=== PATIENT | female | born 1995 | race Caucasian/White ===

== ENCOUNTER 2016-03-27 00:55 | Inpatient (IN) | payer OTHER ==
[2016-03-27] VITALS (10 sets, daily range): BP systolic 116–137; BP diastolic 60–84
[~2016-03-27] VITALS: Ht 154.9 cm; Wt 70.0 kg
[2016-03-27] MEDS ORDERED: LR 1,000 ML IV SCH (02:32)
[2016-03-27 03:17] LABS: MEAN CORPUSCULAR HEMOGLOBIN 30.5 pg (27.0-33.0); MEAN CORPUSCULAR HGB CONC 33.6 g/dl (32.0-36.5); MEAN CORPUSCULAR VOLUME 90.6 fl (80.0-96.0); RED CELL DISTRIBUTION WIDTH 13.1 % (11.5-14.5); WHITE BLOOD COUNT 13.4 K/mm3 (4.0-10.0)
[2016-03-27] MEDS ORDERED: FENTANYL 2MCG/ML ROPIVACAINE 0.2% NACL 250 ML CADD As Ordered ONE (03:23)
--- NOTE | 2016-03-27 03:37 | HPE ---
DATE OF ADMISSION: 03/27/2016 REASON FOR ADMISSION: Spontaneous rupture of membranes. HISTORY OF PRESENT ILLNESS: This patient is a 20-year-old 1, who presents at 39 weeks 5 days estimated gestational age by her last menstrual period confirmed by a first trimester ultrasound with complaints of contractions and leakage of fluid. She reports that she had leakage of fluid that occurred yesterday morning at 5 a.m., have continued throughout the day. She reports irregular contractions that have increased in intensity and frequency. That activity became less than 5 minutes apart at which point she decided to present to labor and delivery. She denied any vaginal bleeding. Reports active movement. Her course has been remarkable for tobacco use. She initiated care in the first trimester, has been appropriate throughout. PAST MEDICAL HISTORY/PAST SURGICAL HISTORY: She has had a cholecystectomy. MEDICATIONS: vitamins. ALLERGIES: She has no known drug allergies. OBSTETRICAL HISTORY: She is a 1. SOCIAL HISTORY: She reports 1/2 pack a day smoking and reports smoking throughout the . PHYSICAL EXAMINATION: VITAL SIGNS: Stable. She is afebrile. She has a category 1 heart rate tracing with a regular pattern of contractions on tachometer. GENERAL APPEARANCE: There is no acute distress. LUNGS: Clear to auscultation bilaterally. CARDIOVASCULAR: Heart is regular rate and rhythm. ABDOMEN: Soft, gravid, and nontender. Estimated weight (EFW) 3400 grams. CERVICAL EXAM: She was 5 cm dilated, completely effaced, 0 station. LABORATORIES: Her blood type is AB positive. Antibody screen is negative. Rubella is immune. RPR is nonreactive. Hepatitis surface antigen is negative. HIV is negative. Hepatitis C is nonreactive. Chlamydia and gonorrhea screens are negative. She had a normal 1-hour Glucola. She is group B Streptococcus (GBS) negative. ASSESSMENT: 1. Ms. Iglesias is a 20-year-old 1 at 39 weeks 5 days estimated gestational age with spontaneous rupture of membranes. 2. Reassuring status. 3. Approaching prolonged rupture of membranes at 22 hours. PLAN: 1. Admit to labor and delivery. CBC, RPR, type and screen. 2. Patient is a good candidate for an epidural. 3. Anticipate spontaneous vaginal delivery.
[2016-03-27] MEDS ORDERED: OXYTOCIN 30 UNITS IN 0.9% NaCl 500ML IV BAG (J2590) As Ordered ONE (03:50)
[2016-03-27] MEDS ORDERED: OXYTOCIN DRIP 30 UNITS in APPROPRIATE DILUENT 1 EA IV SCH (07:43)
[2016-03-27 07:44] LABS: CORD GAS HCO3 V 19.8 MEQ/L; CORD GAS O2 SAT V 56.9 %; CORD GAS PCO2 V 52.1 mmHg; CORD GAS PH V 7.197 UNITS; CORD GAS PO2 V 25.2 mmHg; CORD GAS SBC V 16.5 MEQ/L; CORD GAS TCO2 V 21.4 MEQ/L
[2016-03-27] MEDS ORDERED: IBUPROFEN 800 MG TAB PO PRN (07:45)
[2016-03-27] MEDS ORDERED: RHOGAM 300 MCG (1500 IU) INJ (J2790) IM SCH (07:45)
[2016-03-27] MEDS ORDERED: ONDANSETRON 4MG/2ML VIAL (J2405) IV PRN (07:45)
[2016-03-27] MEDS ORDERED: METHYLERGONOVINE MALEATE 0.2 MG TAB PO PRN (07:45)
[2016-03-27] MEDS ORDERED: MOM 30ML SUSPENSION UDC PO PRN (07:45)
[2016-03-27] MEDS ORDERED: DOCUSATE SODIUM 100 MG CAP PO PRN (07:45)
[2016-03-27] MEDS ORDERED: diphenhydrAMINE INJ 50MG/ML VIAL (J1200) IV PRN (07:45)
[2016-03-27] MEDS ORDERED: LACTATED RINGER'S 1000 ML IV PRN (07:45)
[2016-03-27] MEDS ORDERED: ePHEDrine SULFATE 25 MG/5 ML(5MG/ML) SYRINGE IV PRN (07:45)
[2016-03-27] MEDS ORDERED: MEASLES,MUMPS,RUBELLA VACCINE INJ (MMR-II) (90707) SC SCH (07:45)
[2016-03-27] MEDS ORDERED: EPIDURAL COMMENT XX SCH (07:45)
[2016-03-27] MEDS ORDERED: NALOXONE INJ 0.4 MG/1 ML VIAL (J2310) IV PRN (07:45)
[2016-03-27] MEDS ORDERED: FENTANYL/ROPIVACAINE/NACL CADD 250 ML EPIDURAL SCH (07:45)
[2016-03-27] MEDS ORDERED: DIBUCAINE 1% OINTMENT 30GM TOP PRN (07:45)
[2016-03-27] MEDS ORDERED: REFRIGERATOR IV KEYS XX PRN (07:45)
[2016-03-27] MEDS ORDERED: EPIDURAL/PCA KEYS XX PRN (07:45)
[2016-03-27] MEDS ORDERED: ACETAMINOPHEN 500 MG TAB PO PRN (07:45)
[2016-03-27 07:46] LABS: CORD GAS ABE A -10.4; CORD GAS HCO3 A 21.4 MEQ/L; CORD GAS O2 SAT A 30.1 %; CORD GAS PCO2 A 71.9 mmHg; CORD GAS PH A 7.092 UNITS; CORD GAS PO2 A 17.2 mmHg; CORD GAS SBC A 14.9 MEQ/L; CORD GAS TCO2 A 23.6 MEQ/L
--- NOTE | 2016-03-27 07:55 | DN ---
DATE OF DELIVERY: 03/27/2016 TIME OF : 0711 hours. GENDER: Male. SCORE: 7 and 9. WEIGHT: 3232 grams or 7 pounds 2 ounces. LACERATIONS: Bilateral periurethral lacerations. ESTIMATED BLOOD LOSS: Was 300 mL. ANESTHESIA: Epidural. COUNTS: 5 laparotomy sponges accounted for prior to and after delivery. DELIVERY NOTE: On 03/27/2016, at 0711 hours, Ms. Iglesias , a 20-year-old, 1, now para 1, had a spontaneous vaginal delivery of a liveborn male , score 7 and 9, weight 7 pounds 2 ounces or 3232 grams. Head was delivered left occiput anterior (JESS) over intact peritoneum. There was a loose nuchal cord, which was manually reduced, followed by delivery of right anterior shoulder, left posterior shoulder and corpus. was handed to mom with a good cry. Cord was clamped times two. It was cut by the father of the baby under my direction. Cord blood and cord gases were then obtained. Placenta was then drained, delivered grossly intact. A premixed bag of 500 mL of normal saline with 30 units of Pitocin was then bolused along with uterine massage until the uterus was firm. On inspection, bilateral periurethral lacerations, which were repaired with #3-0 Vicryl Rapide. On re-inspection, the cervix, vagina and perineum was grossly intact and hemostatic. Mom and baby recovered in stable condition. The couple have decided to name their son, Matt.
[2016-03-27] MEDS ORDERED: PRENTAB9 PO (08:47)
[2016-03-27] MEDS: PRENATAL VITAMIN TAB PO SCH (09:00)
[2016-03-28 05:48] VITALS: BP 116/72
[2016-03-28] MEDS: PRENATAL VITAMIN TAB PO SCH (09:00)
[2016-03-28 18:03] VITALS: BP 111/63
[2016-03-29 05:52] VITALS: BP 136/73
[2016-03-29] MEDS: PRENATAL VITAMIN TAB PO SCH (08:35)
[2016-03-29] MEDS ORDERED: ADACEL/BOOSTRIX VACCINE (DIPHTH/PERTUSS/ACELL/TETANUS)0.5ML SYR (90715) IM ONE (09:00)
[2016-03-29] MEDS ORDERED: ACET50TA PO (09:05)
[2016-03-29] MEDS ORDERED: MOTR200T40 PO (09:05)
== END 2016-03-29 09:45 | disposition home or self-care (01) | DRG 560 ==
LOC: M LDO 00:55 → M LDI 02:00 → M OBS 10:07
PROVIDERS: ADMIT Obstetrics & Gynecology; ATTEND Obstetrics & Gynecology
PROC: 10E0XZZ Delivery of Products of Conception, External Approach (ICD-10-PCS; principal; 2016-03-27)
PROC: 0UQMXZZ Repair Vulva, External Approach (ICD-10-PCS; 2016-03-27)
DX: O71.82 Other specified trauma to perineum and vulva (principal); F17.210 Nicotine dependence, cigarettes, uncomplicated; O99.334 Smoking (tobacco) complicating childbirth; Z37.0 Single live birth; Z3A.39 39 weeks gestation of pregnancy; O69.82X0 Labor and delivery complicated by other cord entanglement, without compression, not applicable or unspecified; Z90.49 Acquired absence of other specified parts of digestive tract

== ENCOUNTER → 2017-05-07 | Outpatient (REF) | payer OTHER | LOC: M LAB REF 16:28 | DX: J02.9 Acute pharyngitis, unspecified (principal) ==

== ENCOUNTER → 2017-10-20 | Outpatient (REF) | payer OTHER | LOC: M LAB REF 16:56 | DX: R30.0 Dysuria (principal) | CPT/HCPCS: 87186 ==

== ENCOUNTER → 2017-12-03 | Outpatient (CLI) | payer OTHER ==
[2017-12-03 10:50] LABS: BASO % 0.4 % (0.0-1.0); EOS # 0.1 10^3/uL (0.0-0.50); EOS % 1.1 % (0.0-3.0); HEMATOCRIT 40.2 % (36.0-47.0); HEMOGLOBIN 13.5 g/dl (12.0-15.5); IMMATURE GRANULOCYTE % 0.3 % (0-3.0); LYMPH # 1.8 10^3/uL (1.5-6.5); LYMPH % 25.5 % (24.0-44.0); MEAN CORPUSCULAR HEMOGLOBIN 31.4 pg (27.0-33.0); MEAN CORPUSCULAR HGB CONC 33.6 g/dl (32.0-36.5); MEAN CORPUSCULAR VOLUME 93.5 fl (80.0-96.0); MONO # 0.8 10^3/uL (0.0-0.8); MONO % 10.9 % (0.0-5.0); NEUTROPHILS # 4.4 10^3/uL (1.8-7.7); NEUTROPHILS % 61.8 % (36.0-66.0); PLATELET COUNT, AUTOMATED 222 10^3/uL (150-450); RED CELL DISTRIBUTION WIDTH 12.6 % (11.5-14.5); WHITE BLOOD COUNT 7.1 10^3/uL (4.0-10.0)
[2017-12-03 12:00] LABS: HEPATITIS C VIRUS ABY INDEX 0.1 INDEX (<0.8)
[2017-12-03 12:00] LABS: HBsAg Prenatal NEGATIVE (NEGATIVE); RUBELLA IgG QUALITATIVE IMMUNE (IMMUNE)
[2017-12-03 13:05] LABS: CHLAMYDIA DNA AMPLIFICATION NEGATIVE (NEGATIVE)
[2017-12-04 07:09] LABS: GC DNA AMPLIFICATION NEGATIVE (NEGATIVE)
[2017-12-04 07:10] LABS: HIV 1&2 SCREEN CENTAUR NEGATIVE (NEGATIVE)
== END ==
LOC: M LAB 10:10
DX: Z34.81 Encounter for supervision of other normal pregnancy, first trimester (principal); Z3A.10 10 weeks gestation of pregnancy; Z36.89 Encounter for other specified antenatal screening
CPT/HCPCS: 86762

== ENCOUNTER → 2018-02-09 | Outpatient (CLI) | payer OTHER | LOC: M RAD 12:44 | DX: Z36.89 Encounter for other specified antenatal screening (principal); Z3A.20 20 weeks gestation of pregnancy | CPT/HCPCS: 76811 ==

== ENCOUNTER → 2018-05-28 | Outpatient (REF) | payer OTHER ==
[~2018-05-28] MED LIST: MAPA500T2 PO; MOTR200T44 PO; PRENTAB9 PO
== END ==
LOC: M LAB REF 17:20
PROVIDERS: ATTEND Advanced Practice Midwife
DX: O99.333 Smoking (tobacco) complicating pregnancy, third trimester (principal)

== ENCOUNTER → 2018-06-02 | Outpatient (CLI) | payer OTHER ==
--- NOTE | 2018-06-03 04:40 | REP ---
Clinical: Growth evaluation. Size discrepancy. Comparison: 02/09/2018 . Findings: Examination demonstrates a single live intrauterine in cephalic presentation. motion is identified by technologist. Placenta is noted anterior and grade grade II without evidence for placenta previa or abruption. Amniotic fluid volume is normal. Cervix appears closed. Nuchal cord cannot be excluded Gestational age by first US 38 weeks 1 day with ALEXEI 06/23/2018 . Gestational age by current measurements 38 weeks 3-day with ALEXEI 06/13/2018 . FHR equals 140 beats per minute. BPD 9.7 cm 39 weeks 3 day HC 33.8 cm 38 weeks 5 day AC 35.1 cm 39 weeks 0 days FL 7.2 cm 37 weeks 0 days HL 6.5 cm 37 weeks 5 days HC/AC ratio 0.96 Estimated weight 3544 grams ( 65th percentile based on age by first ultrasound ). Amniotic fluid index: 11.8 cm Umbilical cord SD ratio: 2.14 Impression: 1. Single live advanced gestation in cephalic presentation demonstrating appropriate interval growth. 2. Nuchal cord cannot be excluded. Electronically Signed by Serge Coburn MD 06/03/2018 04:31 A
== END ==
LOC: M RAD 11:55
PROVIDERS: ATTEND Advanced Practice Midwife
DX: O26.843 Uterine size-date discrepancy, third trimester (principal); Z3A.38 38 weeks gestation of pregnancy; O69.81X1 Labor and delivery complicated by cord around neck, without compression, fetus 1

== ENCOUNTER 2018-06-18 17:00 | Inpatient (IN) | payer OTHER ==
[~2018-06-18] VITALS: Ht 160 cm; Wt 67.0 kg
[2018-06-18] VITALS (7 sets, daily range): BP systolic 114–128; BP diastolic 61–90
[2018-06-18] MEDS ORDERED: OXYTOCIN 30 UNITS IN 0.9% NaCl 500ML IV BAG (J2590) As Ordered ONE (17:26)
[2018-06-18] MEDS ORDERED: LR 1,000 ML IV SCH (17:30)
[2018-06-18 18:10] LABS: CORD GAS ABE V -5.8; CORD GAS HCO3 V 21.4 MEQ/L; CORD GAS O2 SAT V 61.4 %; CORD GAS PCO2 V 48.1 mmHg; CORD GAS PH V 7.267 UNITS; CORD GAS SBC V 18.9 MEQ/L; CORD GAS TCO2 V 22.9 MEQ/L
[2018-06-18 18:18] LABS: HEMATOCRIT 35.1 % (36.0-47.0); HEMOGLOBIN 11.3 g/dl (12.0-15.5); MEAN CORPUSCULAR HEMOGLOBIN 28.3 pg (27.0-33.0); MEAN CORPUSCULAR HGB CONC 32.2 g/dl (32.0-36.5); MEAN CORPUSCULAR VOLUME 87.8 fl (80.0-96.0); PLATELET COUNT, AUTOMATED 207 10^3/uL (150-450)
[2018-06-18] MEDS ORDERED: OXYTOCIN DRIP 30 UNITS in APPROPRIATE DILUENT 1 EA IV ONE (18:30)
[2018-06-18] MEDS ORDERED: METHYLERGONOVINE MALEATE 0.2 MG TAB PO PRN (18:30)
[2018-06-18] MEDS ORDERED: DIBUCAINE 1% OINTMENT 30GM TOP PRN (18:30)
[2018-06-18] MEDS ORDERED: LIDOCAINE 1% MDV 20ML VIAL INFIL ONE (18:30)
[2018-06-18] MEDS ORDERED: DOCUSATE SODIUM 100 MG CAP PO PRN (18:30)
[2018-06-18] MEDS: IBUPROFEN 800 MG TAB PO PRN (19:45)
--- NOTE | 2018-06-18 20:31 | DN ---
DATE: 06/18/2018 PREDELIVERY DIAGNOSIS: 39 and 2/7 weeks gestation, in labor. POSTDELIVERY DIAGNOSIS: Delivered. PROCEDURE: Spontaneous vaginal delivery. INSERTING MACHINE OPERATOR: Suresh Aceves MD ANESTHESIA: None. ESTIMATED BLOOD LOSS: 300 mL. FINDINGS: 8 pound 3 ounce male , 3710 grams, scores 8 and 9. Venous blood gas: 7.26, base excess -5.8. DELIVERY SUMMARY: After a 15 minute second stage, the patient had spontaneous delivery of an 8 pound 3 ounce male , scores 8 and 9 with no delivery anesthesia. Loose nuchal cord times one was reduced. The shoulders delivered with ease. The infant was handed to the mother and cried spontaneously. The cord was doubly clamped and cut. Placenta delivered spontaneously and appeared to be intact. The patient received intravenous (IV) Pitocin immediately after delivery of the placenta. A second-degree perineal laceration was repaired with #2-0 chromic under local anesthesia in the usual fashion. Sponge and needle counts were correct.
[2018-06-18] MEDS: ACETAMINOPHEN 500 MG TAB PO PRN (21:12)
[2018-06-19 05:58] VITALS: BP 110/61
[2018-06-19] MEDS: RHOGAM 300 MCG (1500 IU) INJ (J2790) IM SCH (07:16)
[2018-06-19] MEDS: MEASLES,MUMPS,RUBELLA VACCINE INJ (MMR-II) (90707) SC SCH (07:17)
[2018-06-19] MEDS: PRENATAL VITAMINS CHEWABLE TABLET PO SCH (08:23)
[2018-06-19] MEDS: ACETAMINOPHEN 500 MG TAB PO PRN ×2 (08:23→17:10)
[2018-06-19] MEDS: NICOTINE 21MG/24HR 1 EA TRANSDERMAL TD SCH (08:24)
[2018-06-19 17:52] VITALS: BP 129/83
[2018-06-20 06:00] VITALS: BP 114/65
[2018-06-20] MEDS: RHOGAM 300 MCG (1500 IU) INJ (J2790) IM SCH (07:13)
[2018-06-20] MEDS: MEASLES,MUMPS,RUBELLA VACCINE INJ (MMR-II) (90707) SC SCH (07:13)
[2018-06-20] MEDS: PRENATAL VITAMINS CHEWABLE TABLET PO SCH (07:48)
[2018-06-20] MEDS: IBUPROFEN 800 MG TAB PO PRN (07:48)
[2018-06-20] MEDS ORDERED: IBUP-1114 PO (08:22)
[2018-06-20] MEDS ORDERED: NICO21DI6 TOP (08:22)
[2018-06-20] MEDS ORDERED: MAPA500T2 PO (08:22)
[2018-06-20] MEDS: NICOTINE 21MG/24HR 1 EA TRANSDERMAL TD SCH (09:00)
== END 2018-06-20 10:20 | disposition home or self-care (01) | DRG 560 ==
LOC: M LDO 17:00 → M LDI 17:26 → M OBS 20:09
PROVIDERS: ADMIT Specialist; ATTEND Specialist
PROC: 10E0XZZ Delivery of Products of Conception, External Approach (ICD-10-PCS; principal; 2018-06-18)
PROC: 0KQM0ZZ Repair Perineum Muscle, Open Approach (ICD-10-PCS; 2018-06-18)
DX: O99.334 Smoking (tobacco) complicating childbirth (principal); Z3A.39 39 weeks gestation of pregnancy; Z37.0 Single live birth; O70.1 Second degree perineal laceration during delivery; O69.81X0 Labor and delivery complicated by cord around neck, without compression, not applicable or unspecified; F17.210 Nicotine dependence, cigarettes, uncomplicated

== ENCOUNTER 2018-09-02 05:50 | Day surgery (SDC) | payer OTHER ==
[~2018-09-02] VITALS: Ht 154.9 cm; Wt 52.2 kg
[~2018-09-02 05:50] MED LIST changes: +IBUP-1114 PO; +NICO21DI6 TOP; +SERT-141 PO
[2018-09-02] MEDS ORDERED: LR 1,000 ML IV ONE (06:00)
[2018-09-02 06:19] LABS: HEMATOCRIT 38.9 % (36.0-47.0); HEMOGLOBIN 12.5 g/dl (12.0-15.5); MEAN CORPUSCULAR HGB CONC 32.1 g/dl (32.0-36.5); MEAN CORPUSCULAR VOLUME 90.3 fl (80.0-96.0); PLATELET COUNT, AUTOMATED 201 10^3/uL (150-450); RED BLOOD COUNT 4.31 10^6/uL (4.00-5.40); WHITE BLOOD COUNT 6.4 10^3/uL (4.0-10.0)
[2018-09-02 06:53] LABS: URINE PREG TEST NEGATIVE (NEGATIVE)
[2018-09-02] MEDS ORDERED: fentaNYL 100 MCG/2 ML INJECTION (J3010) As Ordered ONE (06:56)
[2018-09-02] MEDS ORDERED: MIDAZOLAM INJ 2 MG/2 ML VIAL (J2250) As Ordered ONE (06:56)
[2018-09-02] MEDS ORDERED: ONDANSETRON 4MG/2ML VIAL (J2405) As Ordered ONE (07:02)
[2018-09-02] MEDS ORDERED: LIDOCAINE 2% INJ 100 MG/5 ML SDV (FOR ANES.) As Ordered ONE (07:03)
[2018-09-02] MEDS ORDERED: SUGAMMADEX SODIUM 500 MG/5 ML VIAL (BRIDION) As Ordered ONE (07:03)
[2018-09-02] MEDS ORDERED: KETOROLAC 60 MG/2 ML VIAL (J1885) As Ordered ONE (07:03)
[2018-09-02] MEDS ORDERED: ROCURONIUM BROMIDE 50 MG/5 ML VIAL As Ordered ONE (07:03)
[2018-09-02] MEDS ORDERED: dexameTHASONE 4 MG/ML 1ML VIAL (J1100) As Ordered ONE (07:03)
[2018-09-02] MEDS ORDERED: PROPOFOL 200 MG/20 ML VIAL As Ordered ONE (07:03)
[2018-09-02] MEDS ORDERED: BUPIVACAINE HCL 0.25% 30 ML VIAL As Ordered ONE (07:12)
[2018-09-02] MEDS ORDERED: fentaNYL 100 MCG/2 ML INJECTION (J3010) IV PRN (08:45)
[2018-09-02] MEDS ORDERED: ONDANSETRON 4MG/2ML VIAL (J2405) IV PRN (08:45)
[2018-09-02] MEDS ORDERED: oxyCODONE 5MG TAB PO PRN (08:45)
[2018-09-02] MEDS ORDERED: PERCOCET 5MG/325MG TAB PO PRN (09:00)
[2018-09-02] MEDS ORDERED: LR 1,000 ML IV SCH (09:00)
[2018-09-02] MEDS ORDERED: OXYC1TAB23 PO (09:12)
[2018-09-02] MEDS ORDERED: IBUP-1022 PO (09:14)
[2018-09-02 09:55] VITALS: BP 133/75
--- NOTE | 2018-09-03 11:25 | RO ---
DATE OF OPERATION: 09/02/2018 PREOPERATIVE DIAGNOSIS: Undesired fertility. POSTOPERATIVE DIAGNOSIS: Undesired fertility. PROCEDURE: Laparoscopic bilateral salpingectomy. SURGEON: Suresh Aceves MD CLIMBING GUIDE: ANESTHESIA: General endotracheal. ESTIMATED BLOOD LOSS: 10 mL. URINE OUTPUT: 20 mL. FINDINGS: Normal uterus, fallopian tubes, ovaries, normal upper abdomen. DESCRIPTION OF PROCEDURE: Operative summary: The patient taken to the operating room, where general endotracheal anesthesia was induced. She was prepped and draped in sterile fashion in the dorsal lithotomy position. Bladder was emptied through the catheter. A sponge stick was placed in the vagina and used as a manipulator. A periumbilical incision was made with a scalpel. A Veress needle was placed through the incision while tenting up on the skin of the abdomen. Intraabdominal location of the Veress needle was assessed using a saline-filled syringe. A pneumoperitoneum was created. The Veress needle was removed. A 5 mm trocar using Visiport was inserted through this incision. A 5 mm and an 8 mm suprapubic ports were placed under direct visualization without difficulty. Fallopian tubes were grasped with a grasping device and elevated. Broad ligament attachments to the tube were coagulated and incised using LigaSure. Both tubes were then amputated near their origin. Both tubes were removed through the suprapubic port. Good hemostasis was noted. The pneumoperitoneum was released. All instruments were removed. Sponge, instrument, and needle counts were correct. The skin was closed with 4-0 Monocryl subcuticular sutures.
== END 2018-09-02 10:13 | disposition home or self-care (01) ==
LOC: M SDC 05:50
PROVIDERS: ATTEND Specialist
DX: Z30.2 Encounter for sterilization (principal); F32.9 Major depressive disorder, single episode, unspecified; F41.9 Anxiety disorder, unspecified; F17.210 Nicotine dependence, cigarettes, uncomplicated; Z79.899 Other long term (current) drug therapy
CPT/HCPCS: 36415; 58661; 84703; 85027; 88302; J1100; J1885; J2250; J2405; J3010

== ENCOUNTER → 2018-10-05 | Outpatient (REF) | payer OTHER ==
[~2018-10-05] MED LIST changes: +IBUP-1022 PO; +OXYC1TAB23 PO
== END ==
LOC: M LAB REF 17:40
PROVIDERS: ATTEND Advanced Practice Midwife
DX: Z12.4 Encounter for screening for malignant neoplasm of cervix (principal)

== ENCOUNTER 2018-12-04 01:26 | Emergency (ER) | payer OTHER ==
[~2018-12-04] VITALS: Ht 157.5 cm; Wt 52.3 kg
[2018-12-04 03:05] LABS: BASO % 0.4 % (0.0-1.0); EOS # 0.1 10^3/uL (0.0-0.5); EOS % 1.8 % (0.0-3.0); HEMATOCRIT 41.4 % (36.0-47.0); HEMOGLOBIN 13.8 g/dl (12.0-15.5); LYMPH # 2.1 10^3/uL (1.5-5.0); LYMPH % 26.3 % (24.0-44.0); MEAN CORPUSCULAR HEMOGLOBIN 31.7 pg (27.0-33.0); MEAN CORPUSCULAR HGB CONC 33.3 g/dl (32.0-36.5); MONO # 0.9 10^3/uL (0.0-0.8); MONO % 10.9 % (0.0-5.0); NEUTROPHILS # 4.7 10^3/uL (1.5-8.5); NEUTROPHILS % 60.3 % (36.0-66.0); PLATELET COUNT, AUTOMATED 265 10^3/uL (150-450); RED BLOOD COUNT 4.36 10^6/uL (4.00-5.40); WHITE BLOOD COUNT 7.9 10^3/uL (4.0-10.0)
[2018-12-04 03:32] LABS: HCG, SERUM QUALITATIVE NEGATIVE (NEGATIVE)
[2018-12-04 03:34] LABS: ALBUMIN 3.9 GM/DL (3.2-5.2); ALT/SGPT 19 U/L (12-78); BILIRUBIN,TOTAL 0.2 MG/DL (0.2-1.0); BLOOD UREA NITROGEN 11 MG/DL (7-18); CALCIUM LEVEL 9.2 MG/DL (8.5-10.1); CARBON DIOXIDE LEVEL 25 MEQ/L (21-32); CHLORIDE LEVEL 109 MEQ/L (98-107); GLOMERULAR FILTRATION RATE > 60.0 (>60); GLUCOSE, FASTING 98 MG/DL (70-100); POTASSIUM SERUM 4.1 MEQ/L (3.5-5.1); SODIUM LEVEL 145 MEQ/L (136-145)
[2018-12-04] MEDS ORDERED: TRUVTAB PO (06:22)
[2018-12-04] MEDS ORDERED: RALT40TA PO (06:22)
[2018-12-04] MEDS ORDERED: DOXY100C37 PO (06:23)
[2018-12-04] MEDS ORDERED: LIDOCAINE 1% SDV 5 ML VIAL DILUENT ONE (06:30)
[2018-12-04] MEDS ORDERED: cefTRIAXone SOD 1 GM VIAL (J0696) IM ONE (06:30)
[2018-12-04 07:55] VITALS: BP 118/59
[2018-12-04 09:21] LABS: HEPATITIS B SURFACE ANTIBODY NEGATIVE (POSITIVE)
[2018-12-04 09:32] LABS: HEPATITIS B SURFACE ANTIGEN NEGATIVE (NEGATIVE)
[2018-12-04 10:00] LABS: HIV 1&2 SCREEN CENTAUR NEGATIVE (NEGATIVE)
== END 2018-12-04 09:21 | disposition home or self-care (01) ==
LOC: M ED 01:26
DX: T74.21XA Adult sexual abuse, confirmed, initial encounter (principal); Y07.50 Unspecified non-family member, perpetrator of maltreatment and neglect; Z79.899 Other long term (current) drug therapy
CPT/HCPCS: 36415; 80053; 84703; 85025; 86706; 86780; 86803; 87340; 87389; 96372; 99284; J0696

== ENCOUNTER → 2019-04-15 | Outpatient (REF) | payer OTHER ==
[~2019-04-15] MED LIST changes: +DOXY100C37 PO; +RALT40TA PO; +TRUVTAB PO
[2019-04-15 14:00] LABS: BASO % 0.4 % (0.0-1.0); EOS # 0.2 10^3/uL (0.0-0.5); EOS % 3.7 % (0.0-3.0); HEMATOCRIT 41.8 % (36.0-47.0); HEMOGLOBIN 13.8 g/dl (12.0-15.5); LYMPH # 2.2 10^3/uL (1.5-5.0); LYMPH % 43.9 % (24.0-44.0); MEAN CORPUSCULAR HEMOGLOBIN 31.7 pg (27.0-33.0); MEAN CORPUSCULAR VOLUME 95.9 fl (80.0-96.0); MONO # 0.5 10^3/uL (0.0-0.8); MONO % 9.6 % (0.0-5.0); NEUTROPHILS # 2.1 10^3/uL (1.5-8.5); NEUTROPHILS % 42.4 % (36.0-66.0); PLATELET COUNT, AUTOMATED 220 10^3/uL (150-450); RED BLOOD COUNT 4.36 10^6/uL (4.00-5.40); WHITE BLOOD COUNT 4.9 10^3/uL (4.0-10.0)
[2019-04-15 14:05] LABS: ALBUMIN 4.1 GM/DL (3.2-5.2); ALT/SGPT 14 U/L (12-78); BILIRUBIN,DIRECT 0.1 MG/DL (0.0-0.2); BILIRUBIN,TOTAL 0.6 MG/DL (0.2-1.0); BLOOD UREA NITROGEN 5 MG/DL (7-18); CALCIUM LEVEL 8.7 MG/DL (8.5-10.1); CARBON DIOXIDE LEVEL 25 MEQ/L (21-32); CHLORIDE LEVEL 110 MEQ/L (98-107); GLOMERULAR FILTRATION RATE > 60.0 (>60); GLUCOSE, FASTING 95 MG/DL (70-100); POTASSIUM SERUM 3.6 MEQ/L (3.5-5.1); SODIUM LEVEL 140 MEQ/L (136-145); TOTAL PROTEIN 7.2 GM/DL (6.4-8.2)
[2019-04-15 15:02] LABS: HEMOGLOBIN A1c 4.9 %
== END ==
LOC: M LAB REF 13:22
PROVIDERS: ATTEND Physician Assistant
DX: Z79.899 Other long term (current) drug therapy (principal)

== ENCOUNTER → 2019-07-13 | Outpatient (CLI) | payer OTHER ==
--- NOTE | 2019-07-13 17:05 | REP ---
MRI brain without contrast: History: Headaches. No comparison brain imaging. Technique: Axial and sagittal imaging planes are utilized for T1 and T2-weighted scans. Sequences include spin-echo, fast spin echo, FLAIR, and diffusion weighted sequences. MRI findings: No bony calvarial lesion is seen. Craniocervical junction and upper cervical cord are normal in appearance. There is no MR evidence of significant paranasal sinus disease. No intraorbital abnormality is seen. The lateral, third, and fourth ventricles are normal in size and position. Pepe-white differentiation pattern is intact above and below the tentorium. There is no evidence of intracranial hemorrhage. No mass, infarction, extra-axial fluid collection or midline shift is seen. No abnormal white matter lesion is seen. Impression: Negative noncontrast brain MRI study. Electronically Signed by Sanju Preston MD 07/13/2019 04:57 P
== END ==
LOC: M RAD 15:36
PROVIDERS: ATTEND Family Medicine
DX: R51 Headache (principal)

== ENCOUNTER → 2019-07-16 | Outpatient (CLI) | payer OTHER ==
--- NOTE | 2019-07-22 09:01 | SLEEPHOME ---
DATE OF PROCEDURE: 07/16/2019 ORDERED BY: Dr. Lanza Diagnostic home sleep testing was performed due to concern for the obstructive sleep apnea syndrome. 9 hours and 59 minutes of data were reviewed. There were 7 hours and 40 minutes marked as time in bed. During the interval marked time in bed, there were only 11 respiratory events identified of 10 seconds in duration or greater for a respiratory disturbance index of 1.4. The baseline pulse rate was 69, pulse rate ranged as high as 161. Oxygen saturation at baseline was 95%, saturations remained 91% or better throughout the study. Testing was performed in both the supine and nonsupine positions. IMPRESSION: Normal diagnostic home sleep test. Patterning to suggest the obstructive sleep apnea syndrome was not demonstrated.
== END ==
LOC: M SLEEP HO 09:48
PROVIDERS: ATTEND Family Medicine
DX: R53.83 Other fatigue (principal)

== ENCOUNTER → 2019-07-30 | Outpatient (CLI) | payer OTHER ==
[2019-07-30 14:38] LABS: BASO # 0.1 10^3/uL (0.0-0.2); BASO % 0.8 % (0.0-1.0); EOS # 0.3 10^3/uL (0.0-0.5); HEMATOCRIT 38.4 % (36.0-47.0); HEMOGLOBIN 12.6 g/dl (12.0-15.5); LYMPH # 2.2 10^3/uL (1.5-5.0); LYMPH % 37.1 % (24.0-44.0); MEAN CORPUSCULAR HEMOGLOBIN 31.7 pg (27.0-33.0); MEAN CORPUSCULAR HGB CONC 32.8 g/dl (32.0-36.5); MEAN CORPUSCULAR VOLUME 96.5 fl (80.0-96.0); MONO # 0.7 10^3/uL (0.0-0.8); MONO % 10.9 % (0.0-5.0); NEUTROPHILS # 2.7 10^3/uL (1.5-8.5); PLATELET COUNT, AUTOMATED 228 10^3/uL (150-450); RED BLOOD COUNT 3.98 10^6/uL (4.00-5.40)
[2019-07-30 15:01] LABS: ERYTHROCYTE SEDIMENTATION RATE 4 mm/hr (0-20)
[2019-07-30 15:08] LABS: ALBUMIN 3.7 GM/DL (3.2-5.2); ALT/SGPT 29 U/L (12-78); BILIRUBIN,TOTAL 0.2 MG/DL (0.2-1.0); BLOOD UREA NITROGEN 7 MG/DL (7-18); C REACTIVE PROTEIN QUANTITATIV < 0.30 MG/DL (0.00-0.30); CALCIUM LEVEL 7.9 MG/DL (8.5-10.1); CARBON DIOXIDE LEVEL 27 MEQ/L (21-32); CHLORIDE LEVEL 110 MEQ/L (98-107); CREATININE FOR GFR 0.57 MG/DL (0.55-1.30); FREE T4 0.75 NG/DL (0.76-1.46); GLOMERULAR FILTRATION RATE > 60.0 (>60); GLUCOSE, FASTING 106 MG/DL (70-100); IRON (FE) 81 UG/DL (50-170); POTASSIUM SERUM 3.9 MEQ/L (3.5-5.1); SODIUM LEVEL 139 MEQ/L (136-145); TOTAL PROTEIN 6.6 GM/DL (6.4-8.2)
[2019-07-30 15:10] LABS: VITAMIN B12 LEVEL 894 PG/ML (247-911)
[2019-07-30 15:11] LABS: FOLATE 9.5 NG/ML (>5.4)
== END ==
LOC: M LAB 14:03
PROVIDERS: ATTEND Family Medicine
DX: R53.83 Other fatigue (principal)

== ENCOUNTER → 2020-01-18 | Outpatient (REF) | payer OTHER ==
[2020-01-19 13:42] LABS: CHLAMYDIA DNA AMPLIFICATION NEGATIVE (NEGATIVE); GC DNA AMPLIFICATION NEGATIVE (NEGATIVE)
== END ==
LOC: M SFHCWAGY 10:43
PROVIDERS: ATTEND Advanced Practice Midwife
DX: Z12.4 Encounter for screening for malignant neoplasm of cervix (principal); N88.8 Other specified noninflammatory disorders of cervix uteri

== ENCOUNTER → 2020-10-18 | Outpatient (CLI) | payer OTHER ==
[~2020-10-18] MED LIST changes: -DOXY100C37 PO; +DOXY1CAP62 PO; +EMTR1TAB16 PO; -TRUVTAB PO
--- NOTE | 2020-10-18 15:41 | REP ---
INDICATION: EVAL FOR CYST. COMPARISON: None. TECHNIQUE: Transabdominal ultrasound imaging of the pelvis. No endovaginal imaging is performed. FINDINGS: The uterus is retroflexed and normal size measuring 8.0 x 4.5 x 5.9 cm. The myometrium is unremarkable. The endometrium is thickened measuring up to 17 mm. Normal endometrial thickness of 7-16 mm can be seen in the secretory phase of the menstrual cycle. Right ovary: The right ovary measures 4.8 x 2.2 x 2.9 cm. There are no dominant right ovarian mass or cyst. Left ovary: The left ovary measures 4.0 x 1.4 x 2.5 cm. There is no dominant left ovarian mass or cyst. There is vascular flow in both ovaries with the Doppler resistive index of the parenchymal arteries in the right kidney measuring 0.62 and left kidney measuring 0.63. There is no free fluid in the cul-de-sac. IMPRESSION: Thickened endometrium as discussed above. Otherwise, negative pelvic ultrasound. Follow-up pelvic ultrasound might be performed to determine if the endometrial thickness is persistent or transient. <Electronically signed by Gabriel Beckman > 10/18/20 [id number]
== END ==
LOC: M RAD 13:22
PROVIDERS: ATTEND Advanced Practice Midwife
DX: R10.2 Pelvic and perineal pain (principal)

== ENCOUNTER → 2021-01-05 | Outpatient (CLI) | payer OTHER ==
[~2021-01-05] MED LIST changes: +DOXY-443 PO; -DOXY1CAP62 PO
--- NOTE | 2021-01-07 07:50 | REP ---
INDICATION: PELVIC PAIN COMPARISON: 10/18/2020 TECHNIQUE: Transabdominal pelvic ultrasound followed by transvaginal examination for better evaluation of the endometrium and adnexa with color Doppler evaluation of the ovaries. FINDINGS: Bladder is unremarkable and measures 13.4 x 8.7 x 9.8 cm. Normal retroflexed uterus measures 7.9 x 4.6 x 4.5 cm. The endometrial complex measures 13 mm thickness. No discrete uterine or endometrial abnormalities are appreciated. Bilateral ovaries are normal in appearance and vascularity without evidence for torsion. Right ovary measures 3.9 x 1.5 x 2.4 cm; R I = 0.60. Left ovary measures 3.3 x 2.5 x 2.7 cm with 1.4 cm complex presumed physiologic cyst; R I = 0.50. Small amount of free fluid adjacent to the right adnexa. IMPRESSION: 1. Normal retroflexed uterus. 2. Presumed complex hemorrhagic physiologic cyst left ovary. If the patient remains symptomatic consider re-evaluation in 4-6 weeks. <Electronically signed by Serge Coburn > 01/07/21 [id number]
== END ==
LOC: M WHC 15:11
PROVIDERS: ATTEND Advanced Practice Midwife
DX: R10.2 Pelvic and perineal pain (principal); N83.8 Other noninflammatory disorders of ovary, fallopian tube and broad ligament

== ENCOUNTER → 2021-01-23 | Outpatient (REF) | payer OTHER | LOC: M SFHCWAGY 13:27 | PROVIDERS: ATTEND Specialist | DX: Z01.419 Encounter for gynecological examination (general) (routine) without abnormal findings (principal) ==

== ENCOUNTER → 2021-03-28 | Outpatient (CLI) | payer OTHER ==
[~2021-03-28] MED LIST changes: +HYDR-3363 PO; +LEXA1TAB2 PO; +TOPA50TA8 PO
== END ==
LOC: M LABSMTC 12:03
PROVIDERS: ATTEND Anesthesiology
DX: Z01.818 Encounter for other preprocedural examination (principal); Z11.52 Encounter for screening for COVID-19

== ENCOUNTER 2021-08-27 14:39 | Emergency (ER) | payer OTHER ==
[~2021-08-27] VITALS: Ht 157.5 cm; Wt 60.6 kg
[2021-08-27] MEDS ORDERED: LIDOCAINE W/EPINEPHRINE 1% 20ML VIAL SC ONE (15:30)
[2021-08-27] MEDS ORDERED: DOXY-443 PO (15:47)
[2021-08-27] MEDS ORDERED: IBUP-1022 PO (15:49)
[2021-08-27 16:08] VITALS: BP 112/72
== END 2021-08-27 16:09 | disposition home or self-care (01) ==
LOC: M ED 14:39
DX: L02.416 Cutaneous abscess of left lower limb (principal); Z79.899 Other long term (current) drug therapy; F41.9 Anxiety disorder, unspecified; F32.A Depression, unspecified

== ENCOUNTER → 2021-09-27 | Outpatient (CLI) | payer OTHER | LOC: M RAD 12:01 | PROVIDERS: ATTEND Family Medicine | DX: M54.2 Cervicalgia (principal); M25.562 Pain in left knee ==

== ENCOUNTER 2021-11-08 14:30 | Outpatient (RCR) | payer OTHER | END 2021-11-14 | LOC: M PT 14:30 | PROVIDERS: ATTEND Family Medicine | DX: M25.562 Pain in left knee (principal) ==

== ENCOUNTER → 2022-04-15 | Outpatient (CLI) | payer OTHER ==
[2022-04-15 09:53] LABS: APPEARANCE, URINE MANUAL CLEAR (CLEAR); COLOR, URINE MANUAL YELLOW (YELLOW)
[2022-04-15 09:55] LABS: BILIRUBIN, URINE MANUAL NEGATIVE (NEGATIVE); BLOOD URINE MANUAL NEGATIVE (NEGATIVE); GLUCOSE, URINE (UA) MANUAL NEGATIVE (NEGATIVE); KETONE, URINE MANUAL NEGATIVE (NEGATIVE); LEUKOCYTE ESTERASE, URINE MAN NEGATIVE (NEGATIVE); NITRITE, URINE MANUAL NEGATIVE (NEGATIVE); PROTEIN, URINE MANUAL NEGATIVE (NEGATIVE); SPECIFIC GRAVITY,URINE MANUAL 1.015 (1.002-1.035); UROBILINOGEN, URINE MANUAL NORMAL (NORMAL)
[2022-04-15 09:59] LABS: HEMATOCRIT 47.2 % (36.0-47.0); MEAN CORPUSCULAR HEMOGLOBIN 32.9 pg (27.0-33.0); MEAN CORPUSCULAR HGB CONC 33.9 g/dl (32.0-36.5); MEAN CORPUSCULAR VOLUME 96.9 fl (80.0-96.0); PLATELET COUNT, AUTOMATED 256 10^3/uL (150-450); RED BLOOD COUNT 4.87 10^6/uL (4.00-5.40); WHITE BLOOD COUNT 8.6 10^3/uL (4.0-10.0)
[2022-04-15 10:24] LABS: ALBUMIN 4.2 G/DL (3.2-5.2); ALKALINE PHOSPHATASE 97 U/L (46-116); ALT/SGPT 65 U/L (7.0-40); AST/SGOT 35 U/L (<34); BILIRUBIN,TOTAL 0.7 MG/DL (0.3-1.2); BLOOD UREA NITROGEN 7 MG/DL (9-23); CALCIUM LEVEL 9.7 MG/DL (8.5-10.1); CARBON DIOXIDE LEVEL 27 MMOL/L (20-31); CHLORIDE LEVEL 102 MMOL/L (98-107); CHOLESTEROL LEVEL 175 MG/DL (<200); CHOLESTEROL RISK RATIO 3.25 (<5); CREATININE FOR GFR 0.72 MG/DL (0.55-1.30); GLOMERULAR FILTRATION RATE > 60.0 (>60); GLUCOSE, FASTING 84 MG/DL (60-100); HDL CHOLESTEROL 53.8 MG/DL (>40); NON-HDL-C 121 MG/DL; POTASSIUM SERUM 4.1 MMOL/L (3.5-5.1); SODIUM LEVEL 136 MMOL/L (136-145); TOTAL PROTEIN 7.4 G/DL (5.7-8.2); TRIGLYCERIDES LEVEL 76 MG/DL (<150)
[2022-04-15 10:33] LABS: FREE T4 1.19 NG/DL (0.89-1.76); THYROID STIMULATING HORMONE 1.894 uIU/ML (0.55-4.78)
[2022-04-15 10:35] LABS: VITAMIN B12 LEVEL 1280 PG/ML (211-911)
[2022-04-15 10:38] LABS: FOLATE 7.3 NG/ML (>5.4)
== END ==
LOC: M LAB 08:58
PROVIDERS: ATTEND Family Medicine
DX: Z00.00 Encounter for general adult medical examination without abnormal findings (principal); F33.9 Major depressive disorder, recurrent, unspecified; F17.210 Nicotine dependence, cigarettes, uncomplicated

== ENCOUNTER → 2022-07-09 | Outpatient (REF) | payer OTHER | LOC: M SFHCWAGY 17:50 | PROVIDERS: ATTEND Specialist | DX: Z12.4 Encounter for screening for malignant neoplasm of cervix (principal); R87.628 Other abnormal cytological findings on specimens from vagina ==

== ENCOUNTER → 2023-02-22 | Outpatient (CLI) | payer OTHER ==
[2023-02-22 13:29] LABS: BASO % 0.6 % (0.0-1.0); EOS # 0.2 10^3/uL (0.0-0.5); EOS % 2.1 % (0.0-3.0); HEMATOCRIT 47.9 % (36.0-47.0); HEMOGLOBIN 16.3 g/dl (12.0-15.5); LYMPH # 2.4 10^3/uL (1.5-5.0); LYMPH % 33.1 % (24.0-44.0); MEAN CORPUSCULAR HEMOGLOBIN 32.1 pg (27.0-33.0); MEAN CORPUSCULAR VOLUME 94.3 fl (80.0-96.0); MONO % 14.2 % (2.0-8.0); NEUTROPHILS # 3.6 10^3/uL (1.5-8.5); NEUTROPHILS % 49.7 % (36.0-66.0); PLATELET COUNT, AUTOMATED 260 10^3/uL (150-450); RED BLOOD COUNT 5.08 10^6/uL (4.00-5.40); WHITE BLOOD COUNT 7.1 10^3/uL (4.0-10.0)
[2023-02-22 13:38] LABS: ERYTHROCYTE SEDIMENTATION RATE 10 mm/hr (0-20)
== END ==
LOC: M LAB 12:55
PROVIDERS: ATTEND Family Medicine
DX: D72.821 Monocytosis (symptomatic) (principal); G43.009 Migraine without aura, not intractable, without status migrainosus; F17.210 Nicotine dependence, cigarettes, uncomplicated; M25.512 Pain in left shoulder

== ENCOUNTER → 2023-09-03 | Outpatient (REF) | payer OTHER ==
[~2023-09-03] MED LIST changes: +DOXY-323 PO; -DOXY-443 PO
== END ==
LOC: M SFHCWAGY 10:23
PROVIDERS: ATTEND Specialist
DX: Z01.419 Encounter for gynecological examination (general) (routine) without abnormal findings (principal); Z77.9 Other contact with and (suspected) exposures hazardous to health; Z12.4 Encounter for screening for malignant neoplasm of cervix

== ENCOUNTER → 2024-05-28 | Outpatient (REF) | payer OTHER ==
[~2024-05-28] MED LIST changes: -DOXY-323 PO; +DOXY-441 PO
[2024-05-28 15:56] LABS: Trichomonas vaginalis (AMP) NOT DETECTED (NEGATIVE)
[2024-05-28 15:57] LABS: TOTAL 25(OH) VITAMIN D 8.7 NG/ML (20.0-100.0)
[2024-05-28 16:19] LABS: GC DNA AMPLIFICATION NEGATIVE (NEGATIVE)
[2024-05-28 16:23] LABS: HIV 1&2 SCREEN NEGATIVE (NEGATIVE)
[2024-05-28 16:30] LABS: ALBUMIN 3.8 G/DL (3.2-5.2); ALKALINE PHOSPHATASE 76 U/L (35-104); ALT/SGPT 36 U/L (7.0-40); AST/SGOT 17 U/L (<34); BILIRUBIN,TOTAL 0.3 MG/DL (0.3-1.2); BLOOD UREA NITROGEN < 5 MG/DL (9-23); CALCIUM LEVEL 8.7 MG/DL (8.5-10.1); CARBON DIOXIDE LEVEL 27 MMOL/L (20-31); CHLORIDE LEVEL 107 MMOL/L (98-107); CREATININE FOR GFR 0.59 MG/DL (0.55-1.30); GLOMERULAR FILTRATION RATE > 60.0 (>60); GLUCOSE, FASTING 93 MG/DL (60-100); HEPATITIS C VIRUS ABY INDEX 0.03 INDEX (<0.8); SODIUM LEVEL 144 MMOL/L (136-145); TOTAL PROTEIN 6.9 G/DL (5.7-8.2)
[2024-05-28 16:33] LABS: HEMOGLOBIN A1c 4.8 % (4.0-6.0)
== END ==
LOC: M LAB REF 13:32
PROVIDERS: ATTEND Physician Assistant
DX: Z11.9 Encounter for screening for infectious and parasitic diseases, unspecified (principal); E55.9 Vitamin D deficiency, unspecified; G43.909 Migraine, unspecified, not intractable, without status migrainosus

== ENCOUNTER → 2024-12-03 | Outpatient (REF) | payer OTHER ==
[~2024-12-03] MED LIST changes: -IBUP-1022 PO; +IBUP600T42 PO
[2024-12-03 14:48] LABS: Trichomonas vaginalis (AMP) NOT DETECTED (NEGATIVE)
[2024-12-03 15:12] LABS: GC DNA AMPLIFICATION NEGATIVE (NEGATIVE)
[2024-12-03 16:08] LABS: BASO # 0.0 10^3/uL (0.0-0.2); BASO % 0.4 % (0.0-1.0); EOS # 0.0 10^3/uL (0.0-0.5); EOS % 0.6 % (0.0-3.0); LYMPH # 2.3 10^3/uL (1.5-5.0); LYMPH % 34.0 % (24.0-44.0); MONO # 0.7 10^3/uL (0.0-0.8); MONO % 9.7 % (2.0-8.0); NEUTROPHILS # 3.7 10^3/uL (1.5-8.5); NEUTROPHILS % 55.2 % (36.0-66.0); PLATELET COUNT, AUTOMATED 265 10^3/uL (150-450)
[2024-12-03 16:27] LABS: CALCIUM LEVEL 9.8 MG/DL (8.5-10.1); CARBON DIOXIDE LEVEL 29 MMOL/L (20-31); CHLORIDE LEVEL 101 MMOL/L (98-107); CREATININE FOR GFR 0.66 MG/DL (0.55-1.30); GLOMERULAR FILTRATION RATE > 90.0 (>60); POTASSIUM SERUM 4.8 MMOL/L (3.5-5.1); SODIUM LEVEL 138 MMOL/L (136-145)
[2024-12-03 16:29] LABS: APPEARANCE, URINE CLEAR (CLEAR); BACTERIA, URINE AUTO NEGATIVE (NEGATIVE); BILIRUBIN, URINE AUTO NEGATIVE (NEGATIVE); BLOOD, URINE BLOOD NEGATIVE (NEGATIVE); GLUCOSE, URINE (UA) AUTO NEGATIVE (NEGATIVE); KETONE, URINE AUTO NEGATIVE (NEGATIVE); LEUKOCYTE ESTERASE, URINE AUTO TRACE (NEGATIVE); MUCUS, URINE SMALL (NEGATIVE); NITRITE, URINE AUTO NEGATIVE (NEGATIVE); PROTEIN, URINE AUTO NEGATIVE (NEGATIVE); RBC, URINE AUTO 0 /HPF (0-3); SPECIFIC GRAVITY URINE AUTO 1.010 (1.002-1.035); SQUAMOUS EPITHELIAL CELL UR AU 2 /HPF (0-6); UROBILINOGEN, URINE AUTO 0.2 mg/dL (0.0-2.0); WBC, URINE AUTO 1 /HPF (0-3)
== END ==
LOC: M LAB REF 12:27
PROVIDERS: ATTEND Physician Assistant
DX: R10.2 Pelvic and perineal pain (principal); R32 Unspecified urinary incontinence